=== PATIENT | male | born 1960 | race Caucasian/White ===

== ENCOUNTER → 2022-09-25 | Outpatient (CLI) | payer MEDICARE ==
--- NOTE | 2022-09-25 18:33 | CT ---
EXAMINATION TYPE: CT soft tissue neck w con DATE OF EXAM: 09/25/2022 COMPARISON: None HISTORY: RT sided jaw pain and swelling. CT DLP: 623.40 mGycm CONTRAST: Patient injected with 100 mL of Isovue 300. TECHNIQUE: Axial images at 3 mm thick sections. Reconstructed images in the coronal plane and sagitt al plane are reviewed. FINDINGS: Limited CT sections are obtained the lung apices. The lung apices appear clear. Portion of the thyroid visualized is normal. CT neck: The torus tubarius and fossa of Rosenmuller are normal. Floater Operator spaces are normal. Para nasal sinuses and mastoid air cells are clear. The inferior portion of the right parotid gland has slightly increased density in relation to the lef t. Mild fullness appears to be present. Right parotid gland has a heterogenous area of contrast with a transverse dimension of 1.6 cm. This a ppears to be just superficial to the angle of the jaw. This appears to follow a vascular structure, b brent appreciated in the coronal plane. This may be the right external jugular vein. Slightly more superficial within the parotid gland is a 0.6 cm hypodensity, example image series 3 im age 62. Dilated duct or cyst could be considered. Dilated parotid duct (Stensen's duct) is not eviden t. No suspicious calcifications are identified. Submandibular glands, are normal. Parapharyngeal spaces are normal. Multiple small lymph nodes are scattered throughout the bilateral neck. Enlarged adenopathy is not ev ident. The hypopharynx appears within normal limits. Tracheobronchial tree as visualized appears normal. Vocal cord level appears close time of imaging. Degenerative disc changes are noted within the cervical spine greatest C5-6 C6-7. IMPRESSIONS: 1. Small dural 0.6 cm hypodensity within a slightly heterogenous but prominent right parotid gland ma y correlate for sialadenitis. No obstructing calcifications are identified. This may be limiting flow through the external jugular vein adjacent.
== END | disposition home or self-care (01) ==
LOC: RADCTMAIN 12:59
PROVIDERS: ATTEND Otolaryngology
DX: K11.21 Acute sialoadenitis (principal)
CPT/HCPCS: 70491; Q9967

== ENCOUNTER → 2023-05-30 | Day surgery (SDC) | payer MEDICARE ==
[~2023-05-30] MED LIST: ALPRAZolam 0.25 MG TAB PO PRN; ALPRAZolam 0.5 MG TAB PO PRN; AMIODARONE 200 MG TAB PO SCH; ASPIRIN 325 MG TAB PO ONE; ATORVASTATIN 80 MG TAB PO ONE; HEPARIN SODIUM 1,000 UN/ML (10ML VL) ONE; HEPARIN SODIUM,PORCINE (1 ML) 2,500 UNIT in SODIUM CHLORIDE 0.9% 250 ML IRRIGATION PRN; HEPARIN SODIUM,PORCINE 10,000 UNIT in SODIUM CHLORIDE 0.9% 1,000 ML IRRIGATION PRN; LIDOCAINE 1% INJ 10MG/ML (20 ML MDV) ONE; METOPROLOL SUCCINATE (ER) 50 MG TAB.ER.24H PO SCH; NITROGLYCERIN SL TABS 0.4 MG TAB SUBLINGUAL PRN; RX INFO: IV CONTRAST WAS GIVEN 1 EACH MISC MISCELLANE PRN; SODIUM CHLORIDE 0.9% 1,000 ML IV SCH; SODIUM CHLORIDE 0.9% 1,000 ML in EMPTY BAG 1 BAG IV SCH; VERAPAMIL 2.5 MG/ML 2 ML AMP ONE; fentaNYL (PF) 50 MCG/ML 2 ML AMP ONE; hydrALAZINE HCL 50 MG TAB PO SCH
[2023-05-30] MEDS: SODIUM CHLORIDE 0.9% 1,000 ML IV ONE (10:32)
[2023-05-30 10:55] LABS: Basophils # (A) 0.1 k/uL (0-0.2); Basophils % (A) 1 %; Eosinophils # (A) 0.1 k/uL (0-0.7); Eosinophils % (A) 1 %; HCT 36.2 % (39.0-53.0); HGB 12.2 gm/dL (13.0-17.5); Lymphocytes # (A) 1.3 k/uL (1.0-4.8); Lymphocytes % (A) 13 %; MCH 33.9 pg (25.0-35.0); MCHC 33.6 g/dL (31.0-37.0); MCV 100.6 fL (80.0-100.0); Macrocytosis Slight; Mean Platelet Volume 8.2; Monocytes % (A) 10 %; Neutrophils # (A) 7.4 k/uL (1.3-7.7); Neutrophils % (A) 75 %; Platelet Count 202 k/uL (150-450); RDW 15.4 % (11.5-15.5); WBC 9.9 k/uL (3.8-10.6)
[2023-05-30 11:05] LABS: African American GFR (CKD) 54 (>60 ml/min/1.73 sqM); Anion Gap 8 mmol/L; Blood Urea Nitrogen 30 mg/dL (9-20); Calcium 8.8 mg/dL (8.4-10.2); Carbon Dioxide 27 mmol/L (22-30); Chloride 100 mmol/L (98-107); Glucose 108 mg/dL (74-99); Non-African American GFR(CKD) 46 (>60 ml/min/1.73 sqM); Potassium 3.6 mmol/L (3.5-5.1); Sodium 135 mmol/L (137-145)
[2023-05-30 11:12] VITALS: RESP 16; TEMP 98.4
[2023-05-30] MEDS: LIDOCAINE 1% INJ 10MG/ML (20 ML MDV) SQ ONE (12:16)
[2023-05-30] MEDS: fentaNYL (PF) 50 MCG/ML 2 ML AMP IVP ONE (12:17)
[2023-05-30] MEDS: VERAPAMIL SYRINGE (5 MG/10 ML) INTRAARTER ONE (12:30)
[2023-05-30] MEDS: HEPARIN SODIUM 1,000 UN/ML (10ML VL) IVP ONE (12:38)
[2023-05-30] MEDS: IOPAMIDOL-370 100ML BTL INJ ONE (12:43)
[2023-05-30 12:53] LABS: O2 Sat Blood Gas 58.2 %
[2023-05-30 12:55] LABS: O2 Sat Blood Gas 58.7 %
[2023-05-30 12:59] LABS: O2 Sat Blood Gas 98.6 %
--- NOTE | 2023-05-30 13:05 | P.CARDCATH ---
Date of Procedure: 05/30/23 Description of Procedure: Cardiac Catheterization: The patient is a 63-year-old male with a known history of chronic tobacco use and hypertension who presented recently with evidence of CHF, atrial fibrillation and evidence of severely impaired ventricle systolic function. He was cardioverted back in sinus mechanism but continues to have symptoms of dyspnea. Recommendations were made regarding cardiac catheterization, the risks and the complications were discussed with the patient who is in full under standing and agreement. Procedure Description: Patient was brought to finishing lab technician in fasting semi-sedated state after receiving Fentanyl and Benadryl achieiving moderate conscious sedated state. Using X ylocaine Anesthesia and modified Seldinger technique, a 6-Kosovan sheath was introduced in the right radial artery . The intravenous catheter in the right basilic vein was exchanged to a 6 Kosovan sheath. Right heart catheterization was performed using a Rewey-Kirill catheter. Multiple samples and pressures were obtained, cardiac output by thermodilution was calculated Subsequently, selective coronary angiography was performed using a 5-Kosovan 3.5 bend Efe catheter. Multiple views of the coronary artery including hemiaxial views were obtained. The right Efe catheter was used to cross the aortic valve and LVEDP was calculated. Following that, catheter and sheath were removed. Hemostasis was obtained with deployment of vascular band . There was no immediate complication. Patient was returned to room in stable condition. Of note, the patient received a total of 5000 units of intravenous heparin as well as intra-arterial verapamil. Findings: Left main: This is a large size vessel, bifurcating into LAD and left circumflex, left main has no obstructive disease LAD: This is a large size vessel, reaching to the apex with a wraparound apex segment giving rise to 2 diagonal branch, the LAD and its branches have no obstructive disease Left circumflex: This is a large nondominant vessel giving rise to a large obtuse marginal branch that has no obstructive disease RCA: This is a dominant vessel bifurcating distally to PDA and PLV, the RCA and its branches have no obstructive disease Left Ventriculogram: Not performed Hemodynamics: There was no gradient across the aortic valve, PA systolic of 48 with a diastolic of 24 with a mean of 37 mmHg, pulmonary capillary wedge pressure A-wave of 22 V wave of 24 with a mean of 24 mmHg, right ventricular systolic pressure of 49 with end-diastolic of 20 mmHg, right atrium A wave of 20 V wave of 20 with a mean of 18 mmHg.,cardiac by thermodilution 4.6 L/min and by Kiesha 4.6 L/min. Pulmonary artery saturation 59% right atrium 58% arterial 99%. LVEDP was 22-24 mmHg Conclusion: 1. Normal coronary arteries 2. Right dominance 3. Moderate pulmonary hypertension 4. Elevated filling pressure Recommendations: The patient will continue on guideline medical therapy in addition to smoking cessation. His cardiomyopathy is nonischemic. Depending on his progress he will be evaluated regarding the need to undergo mitral valve intervention. The findings and the recommendations were discussed with the patient and the family and they were in full understanding and agreement. Duration of sedation is 28 minutes.
[2023-05-30 15:19] VITALS: BP 111/74; PULSE 48
== END | disposition home or self-care (01) ==
LOC: CATHCVL 10:16
PROVIDERS: ATTEND Internal Medicine Interventional Cardiology
DX: I34.0 Nonrheumatic mitral (valve) insufficiency (principal); I11.0 Hypertensive heart disease with heart failure; I50.9 Heart failure, unspecified; I48.91 Unspecified atrial fibrillation; Z79.01 Long term (current) use of anticoagulants; I27.20 Pulmonary hypertension, unspecified; Z87.891 Personal history of nicotine dependence; Z79.899 Other long term (current) drug therapy
CPT/HCPCS: 93460; 80048; 85018; 82810; 85025; C1769 ×3; C1894; C1751; J2001; J3010; J1644; Q9967

== ENCOUNTER → 2023-08-08 | Day surgery (SDC) | payer MEDICARE ==
[~2023-08-08] MED LIST changes: -ALPRAZolam 0.25 MG TAB PO PRN; -ALPRAZolam 0.5 MG TAB PO PRN; -AMIODARONE 200 MG TAB PO SCH; -ASPIRIN 325 MG TAB PO ONE; -ATORVASTATIN 80 MG TAB PO ONE; -HEPARIN SODIUM 1,000 UN/ML (10ML VL) ONE; -HEPARIN SODIUM,PORCINE (1 ML) 2,500 UNIT in SODIUM CHLORIDE 0.9% 250 ML IRRIGATION PRN; -HEPARIN SODIUM,PORCINE 10,000 UNIT in SODIUM CHLORIDE 0.9% 1,000 ML IRRIGATION PRN; +HYDROmorphone 0.5 MG/0.5 ML SYRINGE IVP PRN; +LACTATED RINGERS 1,000 ML IV SCH; +LIDOCAINE 1% (10MG/ML) FOR IV START INTRADERMA PRN; -LIDOCAINE 1% INJ 10MG/ML (20 ML MDV) ONE; -METOPROLOL SUCCINATE (ER) 50 MG TAB.ER.24H PO SCH; -NITROGLYCERIN SL TABS 0.4 MG TAB SUBLINGUAL PRN; +ONDANSETRON 4 MG/2 ML VIAL IVP ONE; -RX INFO: IV CONTRAST WAS GIVEN 1 EACH MISC MISCELLANE PRN; -SODIUM CHLORIDE 0.9% 1,000 ML in EMPTY BAG 1 BAG IV SCH; -VERAPAMIL 2.5 MG/ML 2 ML AMP ONE; -fentaNYL (PF) 50 MCG/ML 2 ML AMP ONE; -hydrALAZINE HCL 50 MG TAB PO SCH
[2023-08-08] MEDS: LACTATED RINGERS 500 ML IV ONE (06:20)
[2023-08-08 07:27] VITALS: BP 114/72; PULSE 60; RESP 16; TEMP 97.5
--- NOTE | 2023-08-08 07:34 | P.PN ---
Progress Note - Text Progress Note Date: 08/08/23 The patient presented today to undergo REBEKAH guided cardioversion, he is in sinus mechanism. He feels well, he denies any chest discomfort, dizziness or palpitations. He has been more active physically without significant symptoms. He will be discharged home today and follow-up as an outpatient regarding his mitral and tricuspid valve regurgitation.
== END | disposition home or self-care (01) ==
LOC: OR 05:54
PROVIDERS: ATTEND Internal Medicine Interventional Cardiology
DX: Z53.8 Procedure and treatment not carried out for other reasons (principal); I34.0 Nonrheumatic mitral (valve) insufficiency

== ENCOUNTER → 2023-12-20 | Outpatient (CLI) | payer MEDICARE ==
[2023-12-20 15:39] LABS: HCT 44.1 % (39.6-50.0); HGB 14.7 g/dL (13.0-17.0); MCH 33.3 pg (27.0-32.0); MCHC 33.3 g/dL (32.0-37.0); MCV 99.8 FL (80.0-97.0); Mean Platelet Volume 10.8 FL (9.5-12.2); NRBC Per 100 WBC 0 X 10*3/uL (0.00-0.01); Platelet Count 236 X 10*3/uL (140-440); RBC 4.42 X 10*6/uL (4.40-5.60); WBC 9.06 X 10*3/uL (4.50-10.00)
[2023-12-20 17:22] LABS: Blood Urea Nitrogen 20.2 mg/dL (9.0-27.0); Carbon Dioxide 21.9 mmol/L (21.6-31.8); Chloride 108 mmol/L (96-109); Potassium 5.2 mmol/L (3.5-5.5); Sodium 141 mmol/L (135-145)
== END | disposition home or self-care (01) ==
LOC: LABPAT 08:21
PROVIDERS: ATTEND Internal Medicine Clinical Cardiac Electrophysiology
DX: I48.3 Typical atrial flutter (principal)
CPT/HCPCS: 36415; 80051; 82565; 84520; 85027

== ENCOUNTER 2023-12-25 10:16 | Day surgery (SDC) | payer MEDICARE ==
[2023-12-25 10:38] LABS: Glucose,Whole Blood 100 mg/dL (70-110)
[2023-12-25] MEDS: SODIUM CHLORIDE 0.9% 1,000 ML IV ONE (11:24)
[2023-12-25 11:37] LABS: ALT 22 U/L (4-49); AST 29 U/L (17-59); African American GFR (CKD) 70 (>60 ml/min/1.73 sqM); Albumin 4.4 g/dL (3.5-5.0); Alkaline Phosphatase 59 U/L (38-126); Anion Gap 8 mmol/L; Blood Urea Nitrogen 25 mg/dL (9-20); Calcium 9.7 mg/dL (8.4-10.2); Carbon Dioxide 24 mmol/L (22-30); Chloride 106 mmol/L (98-107); Glucose 102 mg/dL (74-99); Non-African American GFR(CKD) 61 (>60 ml/min/1.73 sqM); Potassium 4.8 mmol/L (3.5-5.1); Sodium 138 mmol/L (137-145); Total Bilirubin 1.2 mg/dL (0.2-1.3); Total Protein 7.2 g/dL (6.3-8.2)
[2023-12-25] MEDS ORDERED: LIDOCAINE 1% INJ 10MG/ML (20 ML MDV) ONE (12:38)
[2023-12-25] MEDS ORDERED: fentaNYL (PF) 50 MCG/ML 2 ML AMP ONE (12:38)
[2023-12-25] MEDS ORDERED: PROPOFOL 10 MG/ML 20 ML VIAL IV ONE (12:38)
[2023-12-25] MEDS ORDERED: ISOPROTERENOL 250 MCG/1.25 ML SYR IV ONE (12:38)
[2023-12-25] MEDS ORDERED: SUCCINYLCHOLINE CHLORIDE 200 MG/10 ML VIAL IV ONE (12:38)
[2023-12-25] MEDS ORDERED: ePHEDrine 50 MG/ML 1 ML VIAL ONE (12:38)
[2023-12-25] MEDS ORDERED: NEOSTIGMINE 1 MG/ML 10 ML VIAL ONE (12:38)
[2023-12-25] MEDS ORDERED: ROCURONIUM 10 MG/ML (5 ML VIAL) IV ONE (12:38)
[2023-12-25] MEDS ORDERED: PHENYLEPHRINE-0.9% NACL SYG 1,000 MCG/10 ML SYRINGE ONE (12:38)
[2023-12-25] MEDS ORDERED: GLYCOPYRROLATE 0.2 MG/ML 2 ML VIAL ONE (12:38)
[2023-12-25] MEDS ORDERED: MIDAZOLAM 2 MG/2 ML VIAL ONE (12:38)
[2023-12-25] MEDS: HEPARIN SODIUM,PORCINE 10,000 UNIT in SODIUM CHLORIDE 0.9% 1,000 ML IRRIGATION ONE (12:45)
--- NOTE | 2023-12-25 13:01 | P.EPPROC ---
- EP Procedure Note Electrophysiology Procedure Note: This is Dr. Escobar dictating an H/P on this patient The patient was interviewed and examined IMPRESSION / ASSESSMENT: Nonischemic cardiomyopathy Moderate mitral regurgitation, moderate to severe tricuspid regurgitation Typical atrial flutter, symptomatic RVSP 50 mmHg PLAN: Diagnosis EP study/typical atrial flutter ablation Measure PA pressures since 2D echo suggested elevated PA pressures but during atrial flutter. Will make these measurements in sinus rhythm Continue heart failure medications and anticoagulation transfer to [facility] Patient continues to have shortness of breath on exertion and palpitations Denies any chest discomfort dizziness lightheadedness Continues to have palpitations No fever chills or rigors ROS: No fever chills or rigors, no cough, phlegm or expectoration, no nausea, vomiting or diarrhea, no hematuria, dysuria, no musculoskeletal complaints, no strokes or seizures, no skin lesions. EXAMINATION: Pulse rate 118 beats a minute, afebrile 97.8 F Blood pressure 128/86 mmHg normal respirations 16-18 Breath sounds are clear no rhonchi no crackles, equal air entry bilaterally Heart sounds mildly tachycardic irregular systolic murmur No JVD No lower extremity edema REVIEW OF LABS, ECG & MEDICAL DATA Sodium 138, potassium 4.8 BUN 25 and creatinine 1.25 Glucose 122 Liver function normal TSH normal at 2.2 Medication list includes Entresto, metoprolol, Jardiance and apixaban
[2023-12-25] MEDS: LIDOCAINE 1% INJ 10MG/ML (20 ML MDV) SQ ONE (13:10)
[2023-12-25] MEDS: HEPARIN SODIUM (1,000 UNIT/ML) 1,000 UNIT in SODIUM CHLORIDE 0.9% 1,000 ML IRRIGATION ONE (13:29)
[2023-12-25] MEDS: LACTATED RINGERS 1,000 ML IV ONE (14:30)
[2023-12-25] MEDS ORDERED: ACETAMINOPHEN TAB 325 MG TAB PO PRN (15:06)
--- NOTE | 2023-12-25 15:18 | P.EPPROC ---
- EP Procedure Note Electrophysiology Procedure Note: Diagnosis Recurrent typical atrial flutter Cardiomyopathy, nonischemic Moderate MR and moderate to severe TR Final diagnosis Typical atrial flutter, status post ablation of the CTI Bidirectional block confirmed Inducible focal atrial tachycardia with V pacing Mapped to the tricuspid valve area, septal tricuspid focal atrial tachycardia Status post successful mapping and ablation and the tachycardia is rendered noninducible Plan Continue anticoagulation Reassess LV function and mitral regurgitation and RVSP/tricuspid regurgitation Details Patient is brought to the EP lab in a fasting state. Written informed consent was obtained prior to the procedure. Venous sheaths placed in the right left femoral veins. Mapping, intracardiac echo and diagnostic catheters placed in the heart Catheters placed in the high right atrium His bundle area right ventricle and coronary sinus, cavotricuspid isthmus in the septal tricuspid valve area for mapping and ablation Sinus cycle length 802 ms, TN interval 189 ms, QRS 121 ms and QT interval 455 ms AH 97 and HV 46 ms Sinus node recovery times were 1143, 04/16/2003 and 924 ms. AV node Wenckebach block at the baseline state for 110 ms Atrial tachycardia was induced with Para-Hisian pacing, which was later mapped to the tricuspid annulus on the septal aspect Intracardiac echo revealed mildly reduced LV systolic function in sinus rhythm 3D electroanatomic mapping was performed. The cavotricuspid isthmus was mapped. RF ablation performed The RF line was then interrogated with differential pacing Isthmus conduction time greater than 170 ms in either direction. No electrical gaps In the RF line with activation mapping Very large and thick eustachian ridge noted anatomically. Reversed loop technique had to be used to ablate the IVC half of the CTI Following that CS pacing and Para-Hisian pacing was performed. Selective captur e was noted with VA conduction Atrial tachycardia was then induced with VA conduction very easily Electroanatomic mapping was performed and the atrial tachycardia was localized to the septal tricuspid valve. RF applications applied here resulted in complete illumination of the tachycardia Thereafter the tachycardia is rendered noninducible High-dose Isopril was used. Pacing was performed from the His bundle area/ventricle No inducible arrhythmias on Isopril with V pacing VA block on Isopril was 350 ms All sheaths were then removed. Venous closure devices applied. Patient Toller the procedure well without any acute complications
--- NOTE | 2023-12-25 15:22 | P.PRLE ---
RE: RositaSanty Jeffy Dear Georges Mr. Santy Becker underwent to diagnose EP study for management of atrial flutter. Successful atrial flutter ablation was performed and bidirectional block was confirmed with differential pacing. However following that he had an very easily inducible atrial tachycardia when pacing the right ventricle. This was mapped to the septal tricuspid valve and successful ablation of this focal atrial tachycardia was also performed and rendered noninducible He will continue anticoagulation and his cardiac medications for heart failure I will reassess his tricuspid and mitral regurgitation in the future after about 3 months or so Thank you for entrusting me with the care of the patient Warm regards Sincerely Vinnie Escobar
[2023-12-25] MEDS: ACETAMINOPHEN IV (For NPO) 1,000 MG in EMPTY BAG 1 BAG IVPB ONE (20:20)
[2023-12-25] MEDS: APIXABAN 5 MG TAB PO SCH (20:21)
[2023-12-25] MEDS: SACUBITRIL/VALSARTAN 24 MG-26 MG TABLET PO SCH (20:21)
[2023-12-25] MEDS: METOPROLOL SUCCINATE (ER) 50 MG TAB.ER.24H PO SCH (20:21)
[2023-12-25] MEDS: SODIUM CHLORIDE 0.9% 1,000 ML IV SCH (22:22)
[2023-12-26 07:42] VITALS: BP 107/75; PULSE 64; RESP 16; TEMP 98
--- NOTE | 2023-12-26 08:10 | P.DS ---
Providers Attending physician: Vinnie Escobar Primary care physician: Georges Breen [facility] Course: Patient is doing well. No chest discomfort no dizziness lightheadedness no palpitations His groins of healed well Mild soreness but otherwise no problems Rhythm is normal Twelve-lead EKG shows sinus mechanism normal AK interval and PVCs noted On clinical examination premature beats noted No murmurs Clear lungs no rhonchi no crackles Blood pressure 104/45 mmHg pulse rate in the 60s afebrile Impression Nonischemic cardiomyopathy with 3+ tricuspid regurgitation and moderate MR Typical atrial flutter status post ablation yesterday with confirmed bidirectional block with differential pacing Inducible atrial tachycardia, focus originating from the septal aspect of the tricuspid valve area, 3 o'clock position in the DE view, successful ablation in the tachycardia is rendered noninducible No other inducible arrhythmias thereafter on Isopril Plan continue Eliquis Continue cardiac medications Follow-up in a week Plan - Discharge Summary New Discharge Prescriptions: No Action Metoprolol Succinate (ER) [Toprol Xl] 50 mg PO BID Zinc Gluconate [Zinc] 50 mg PO Q3D L-Citrulline 1 tab PO Q3D Empagliflozin [Jardiance] 10 mg PO DAILY Apixaban [Eliquis] 5 mg PO BID RX: Vitamin B Complex 1 each PO Q3D Sacubitril/Valsartan [Entresto 24 mg-26 mg Tablet] 1 each PO BID Calcium, Magnesium Supp. 1 tab PO Q3D Discharge Medication List Apixaban [Eliquis] 5 mg PO BID 05/18/23 [History] Metoprolol Succinate (ER) [Toprol Xl] 50 mg PO BID 05/18/23 [History] Calcium, Magnesium Supp. 1 tab PO Q3D 08/06/23 [History] Empagliflozin [Jardiance] 10 mg PO DAILY 08/06/23 [History] L-Citrulline 1 tab PO Q3D 08/06/23 [History] RX: Vitamin B Complex 1 each PO Q3D 08/06/23 [History] Sacubitril/Valsartan [Entresto 24 mg-26 mg Tablet] 1 each PO BID 08/06/23 [History] Zinc Gluconate [Zinc] 50 mg PO Q3D 08/06/23 [History]
[2023-12-26] MEDS: DAPAGLIFLOZIN PROPANEDIOL 5 MG TABLET PO SCH (08:12)
== END 2023-12-26 10:57 | disposition home or self-care (01) ==
LOC: CATHEP 10:16 → 6NMEDSUR 14:59 → CATHEP 12-26 10:57
PROVIDERS: ATTEND Internal Medicine Clinical Cardiac Electrophysiology
DX: I08.1 Rheumatic disorders of both mitral and tricuspid valves (principal); I48.3 Typical atrial flutter; I45.5 Other specified heart block; I42.8 Other cardiomyopathies; I49.3 Ventricular premature depolarization; I10 Essential (primary) hypertension; F17.210 Nicotine dependence, cigarettes, uncomplicated; Z79.01 Long term (current) use of anticoagulants; Z79.84 Long term (current) use of oral hypoglycemic drugs; Z79.899 Other long term (current) drug therapy
CPT/HCPCS: 80053; 84443; 86850; 86900; 86901; 93005; 93623; 93653; 93655; 93662

== ENCOUNTER → 2024-06-12 | Outpatient (CLI) | payer MEDICARE ==
[2024-06-12 22:49] LABS: NT-Pro-B-Type Natriuretic Pept 110 pg/mL (0-125)
[2024-06-12 22:51] LABS: ALT 23 U/L (10-49); AST 24 U/L (14-35); Albumin/Globulin Ratio 1.67 Ratio (1.60-3.17); Alkaline Phosphatase 58 U/L (41-126); BUN/Creat Ratio 18.55 Ratio (12.00-20.00); Blood Urea Nitrogen 20.4 mg/dL (9.0-27.0); Carbon Dioxide 25.6 mmol/L (21.6-31.8); Chloride 104 mmol/L (96-109); Globulin 2.4 g/dL (1.6-3.3); Glucose 74 mg/dL (70-110); Potassium 4.5 mmol/L (3.5-5.5); Sodium 139 mmol/L (135-145); Total Bilirubin 0.4 mg/dL (0.3-1.2); Total Protein 6.4 g/dL (6.2-8.2)
== END | disposition home or self-care (01) ==
LOC: LABWHC1 12:21
PROVIDERS: ATTEND Internal Medicine Interventional Cardiology
DX: I42.8 Other cardiomyopathies (principal)
CPT/HCPCS: 36415; 80053; 83880

== ENCOUNTER 2024-08-07 09:10 | Emergency (ER) | payer MEDICARE ==
[2024-08-07 09:19] VITALS: TEMP 98
--- NOTE | 2024-08-07 12:52 | ED ---
Psych HPI - General Chief Complaint: Psychiatric Symptoms Stated Complaint: depression,mental health Time Seen by Provider: 08/07/24 09:15 Source: patient Mode of arrival: ambulatory - History of Present Illness Initial Comments: 64-year-old male presents the emergency department with anxiety. Patient states that his ex- recently moved back in with him. She was incarcerated and lost her house. He felt as if he needed to help her. He states it has been extremely painful with her living at home. She is bipolar and makes very impulsive choices. She makes the relationship with his children difficult. Patient admits to marijuana use. Occasional alcohol use. He feels so stressed but denies feeling suicidal. No homicidal ideations. Patient feels as if he needs a counselor to talk to. No other alleviating, precipitating or modifying factors - Related Data Home Medications Medication Instructions Recorded Confirmed Apixaban [Eliquis] 5 mg PO BID 05/18/23 12/25/23 Metoprolol Succinate (ER) [Toprol 50 mg PO BID 05/18/23 12/25/23 Xl] Calcium, Magnesium Supp. 1 tab PO Q3D 08/06/23 12/25/23 Empagliflozin [Jardiance] 10 mg PO DAILY 08/06/23 12/25/23 L-Citrulline 1 tab PO Q3D 08/06/23 12/25/23 Sacubitril/Valsartan [Entresto 24 1 each PO BID 08/06/23 12/25/23 mg-26 mg Tablet] Vitamin B Complex 1 each PO Q3D 08/06/23 12/25/23 Zinc Gluconate [Zinc] 50 mg PO Q3D 08/06/23 12/25/23 Previous Rx's Medication Instructions Recorded hydrOXYzine HCL [Atarax] 25 mg PO TID PRN #30 tab 08/07/24 Allergies Allergy/AdvReac Type Severity Reaction Status Date / Time No Known Allergies Allergy Verified 08/07/24 09:19 Review of Systems ROS Statement: Those systems with pertinent positive or pertinent negative responses have been documented in the HPI. ROS Other: All systems not noted in ROS Statement are negative. Past Medical History Past Medical History: Atrial Fibrillation, Heart Failure, COPD, Hypertension, Osteoarthritis (OA) Additional Past Medical History / Comment(s): recent hospitalization @[facility] for Covid early April 2023, kidney function was affected but is back to normal per pt, mitral valve problem History of Any Multi-Drug Resistant Organisms: None Reported Past Surgical History: Back Surgery, Heart Catheterization, Joint Replacement, Orthopedic Surgery Additional Past Surgical History / Comment(s): ORIF right femur-hardware removed later, arthroscopies timothy knees, Rt. TKA, I & D Lt. elbow from infection, cardioversion x2, lumbar laminectomy Past Anesthesia/Blood Transfusion Reactions: No Reported Reaction Past Psychological History: Anxiety Smoking Status: Current every day smoker Past Alcohol Use History: Daily Past Drug Use History: Marijuana - Past Family History Mother Family Medical History: Pneumonia Additional Family Medical History / Comment(s): age 79 Father Additional Family Medical History / Comment(s): age 86. CABG x 2 vessels General Exam Limitations: no limitations General appearance: alert, in no apparent distress Head exam: Present: atraumatic, normocephalic, normal inspection Eye exam: Present: normal appearance, PERRL, EOMI. Absent: scleral icterus, conjunctival injection, periorbital swelling ENT exam: Present: normal exam, mucous membranes moist Neck exam: Present: normal inspection. Absent: tenderness, meningismus, lymphadenopathy Respiratory exam: Present: normal lung sounds bilaterally. Absent: respiratory distress, wheezes, rales, rhonchi, stridor Cardiovascular Exam: Present: regular rate, normal rhythm, normal heart sounds. Absent: systolic murmur, diastolic murmur, rubs, gallop, clicks GI/Abdominal exam: Present: soft, normal bowel sounds. Absent: distended, tenderness, guarding, rebound, rigid Extremities exam: Present: normal inspection, full ROM, normal capillary refill. Absent: tenderness, pedal edema, joint swelling, calf tenderness Back exam: Present: normal inspection Neurological exam: Present: alert, oriented X3, CN II-XII intact Psychiatric exam: Present: depressed, anxious Skin exam: Present: warm, dry, intact, normal color. Absent: rash Course Vital Signs 08/07/24 08/07/24 08/07/24 09:13 13:30 14:27 Temperature 98 F Pulse Rate 65 81 Respiratory 18 15 18 Rate Blood Pressure 134/80 109/72 O2 Sat by Pulse 94 L 96 Oximetry Medical Decision Making - Medical Decision Making Was pt. sent in by a medical professional or institution (, PA, VARITYPE OPERATOR, urgent care, hospital, or fci...) When possible be specific @ -No Did you speak to anyone other than the patient for history (EMS, parent, family, police, friend...)? What history was obtained from this source @ -No Did you review nursing and triage notes (agree or disagree)? Why? @ -I reviewed and agree with nursing and triage notes Were old charts reviewed (outside hosp., previous admission, EMS record, old EKG, old radiological studies, urgent care reports/EKG's, fci records)? Report findings @ -No old charts were reviewed Differential Diagnosis (chest pain, altered mental status, abdominal pain women, abdominal pain men, vaginal bleeding, weakness, fever, dyspnea, syncope, he adache, dizziness, GI bleed, back pain, seizure, CVA, palpatations, mental health, musculoskeletal)? @ -Differential Mental Health Depression, anxiety, bipolar, psychosis, schizophrenia, borderline personality, situational depression, adjustment disorder, behavioral disorder, brain tumor, malingering, substance abuse, encephalopathy, medication reaction, dementia, hypothyroidism, degenerative neurologic disorder, lupus.... This is not meant to be all-inclusive list EKG interpreted by me (3pts min.). @ -Not done X-rays interpreted by me (1pt min.). @ -None done CT interpreted by me (1pt min.). @ -None done U/S interpreted by me (1pt. min.). @ -None done What testing was considered but not performed or refused? (CT, X-rays, U/S, labs)? Why? @ -None What meds were considered but not given or refused? Why? @ -None Did you discuss the management of the patient with other professionals (professionals i.e. , PA, VARITYPE OPERATOR, lab, RT, psych nurse, social sciences department chair, soft crab shedder, teacher, title officer, case making machine operator)? Give summary @ -Spoke with Evelio from EPS who evaluates the patient and talk to psychiatrist. They recommend hydroxyzine Was smoking cessation discussed for >3mins.? @ -No Was critical care preformed (if so, how long)? @ -No Were there social determinants of health that impacted care today? How? (Homelessness, low income, unemployed, alcoholism, drug addiction, transportation, low edu. Level, literacy, decrease access to med. care, [facility], rehab)? @ -No Was there de-escalation of care discussed even if they declined (Discuss DNR or withdrawal of care, Hospice)? DNR status @ -No What co-morbidities impacted this encounter? (DM, HTN, Smoking, COPD, CAD, Cancer, CVA, ARF, Chemo, Hep., AIDS, mental health diagnosis, sleep apnea, morbid obesity)? @ -None Was patient admitted / discharged? Hospital course, mention meds given and route, prescriptions, significant lab abnormalities, going to OR and other pertinent info. @ -Upon arrival patient seen and evaluated in room 11. Thorough history and physical exam was performed. Patient is made medically clear. He is evaluated by the social work team. He has no inpatient criteria at admission however psychiatrist does recommend hydroxyzine to help with the patient's anxiety. They did give the patient follow-up information for a psychiatrist. Patient is to utilize resources he is provided. Take the hydroxyzine as needed for anxiety. Return for any new or worsening symptoms. Patient was agreeable to plan and was discharged in stable condition Undiagnosed new problem with uncertain prognosis? @ -No Drug Therapy requiring intensive monitoring for toxicity (Heparin, Nitro, Insulin, Cardizem)? @ -No Were any procedures done? @ -No Diagnosis/symptom? @ -Acute stress reaction, anxiety Acute, or Chronic, or Acute on Chronic? @ -Acute Uncomplicated (without systemic symptoms) or Complicated (systemic symptoms)? @ -Complicated Side effects of treatment? @ -No Exacerbation, Progression, or Severe Exacerbation? @ -No Poses a threat to life or bodily function? How? (Chest pain, [place], [place], pneumonia, PE, COPD, DKA, ARF, appy, cholecystitis, CVA, Diverticulitis, Homicidal, Suicidal, threat to staff... and all critical care pts) @ -No Disposition Clinical Impression: Acute anxiety Disposition: HOME SELF-CARE Condition: Stable Instructions (If sedation given, give patient instructions): Anxiety (ED) Additional Instructions: Please try the prescribed medication to see if it alleviates some of your symptoms. Take as needed when feeling anxious. Continue taking your Celexa daily. Follow up with the referrals you were provided. Return to the emergency department for any new or worsening symptoms Prescriptions: hydrOXYzine HCL [Atarax] 25 mg PO TID PRN #30 tab PRN Reason: Anxiety Is patient prescribed a controlled substance at d/c from ED?: No Referrals: Georges Villalta [Primary Care Provider] - 1-2 days Time of Disposition: 14:10
[2024-08-07 14:29] VITALS: BP 109/72; PULSE 81; RESP 18
== END 2024-08-07 14:28 | disposition home or self-care (01) ==
LOC: EC 09:10
DX: F41.9 Anxiety disorder, unspecified (principal); F17.200 Nicotine dependence, unspecified, uncomplicated
CPT/HCPCS: 82075; 99284

== ENCOUNTER → 2024-08-26 | Outpatient (CLI) | payer MEDICARE ==
[2024-08-26 15:59] LABS: HCT 43.5 % (39.6-50.0); HGB 14.6 g/dL (13.0-17.0); MCH 31.9 pg (27.0-32.0); MCHC 33.6 g/dL (32.0-37.0); MCV 95.2 FL (80.0-97.0); Mean Platelet Volume 10.9 FL (9.5-12.2); NRBC Per 100 WBC 0 X 10*3/uL (0.00-0.01); Platelet Count 156 X 10*3/uL (140-440); RBC 4.57 X 10*6/uL (4.40-5.60); RDW 14.2 % (11.5-14.5); WBC 8.25 X 10*3/uL (4.50-10.00)
[2024-08-26 18:21] LABS: ALT 27 U/L (10-49); AST 26 U/L (14-35); Albumin 4.3 g/dL (3.8-4.9); Albumin/Globulin Ratio 1.72 Ratio (1.60-3.17); Alkaline Phosphatase 67 U/L (41-126); Blood Urea Nitrogen 15.3 mg/dL (9.0-27.0); Calcium 9.3 mg/dL (8.7-10.3); Chloride 105 mmol/L (96-109); Globulin 2.5 g/dL (1.6-3.3); Glucose 92 mg/dL (70-110); Potassium 4.7 mmol/L (3.5-5.5); Sodium 142 mmol/L (135-145); Total Bilirubin 0.7 mg/dL (0.3-1.2); Total Protein 6.8 g/dL (6.2-8.2)
[2024-08-26 22:27] LABS: NT-Pro-B-Type Natriuretic Pept 284 pg/mL (0-125)
== END | disposition home or self-care (01) ==
LOC: LABWHC1 12:04
PROVIDERS: ATTEND Nurse Practitioner Adult Health
DX: I48.3 Typical atrial flutter (principal); R06.02 Shortness of breath; R42 Dizziness and giddiness
CPT/HCPCS: 36415; 80053; 83880; 85027